=== PATIENT | female | born 1980 | race African-American/Black ===

== ENCOUNTER 2016-11-24 10:13 | Emergency (ER) | payer BC ==
[~2016-11-24] VITALS: Ht 167.6 cm; Wt 63.5 kg
--- NOTE | ~2016-11-24 | CR63 ---
[facility] A Service of [facility] & [facility] RADIOLOGY TEXT RESULTS PATIENT: DEVORA TINAJERO LOCATION: CFTX : [id number] UNIT #: [id number] AGE: [address]: Amira Sauer APRN SEX: F ORDER DR: [id number] [facility] [address] [place], [place] [address] [id number] MR#: [id number] Acc #: [id number] NAME: DEVORA TINAJREO : 1980 SEX: F STUDY DATE/TIME: 11/24/2016 11:09 UNIT: [facility] ROOM: STUDY DESCRIPTION: CR Chest 2 View Attending Physician: Amira Sauer A.P.R.N. Ordering Physician: Ed Aden Vasquez M.D. Primary Care Physician: Evangelista Messina M.D. MEDICAL IMAGING REPORT This report is preliminary unless electronic signature is present EXAM Two-view chest INDICATION Shortness of air and wheezing, 1-day duration. FINDINGS PA and lateral views of the chest compared to 04/30/2015. Heart and mediastinal contour is normal. Lungs are clear. No pleural effusion. IMPRESSION Normal chest radiograph. Dictated by... Prudencio Sloan M.D. THIS IS AN ELECTRONICALLY VERIFIED REPORT Prudencio Sloan M.D. at 11/25/2016 11:47 AM DANNY/elba TD: 11/25/2016 11:17 JOB #: [id number] MEDICAL IMAGING REPORT Page 1 of 1 COPY
[~2016-11-24 10:13] MED LIST: DOXYCYCLINE HY100 M1 PO; FLEXERIL10 M1 PO; IBUPROFEN800 MG PO; LEVAQUIN PO; LORTAB 5/500 TA1 TA2 PO
== END 2016-11-24 12:15 | disposition home or self-care (01) ==
LOC: CED 10:13 → CFTX 10:13
DX: J45.41 Moderate persistent asthma with (acute) exacerbation (principal); F17.200 Nicotine dependence, unspecified, uncomplicated
CPT/HCPCS: 71020; 94640; 99284